=== PATIENT | female | born 1990 | race American Indian/Alaskan Native ===

== ENCOUNTER 2016-11-12 13:08 | Emergency (ER) | payer MEDICAID ==
[2016-11-12 14:09] VITALS: BP 129/78
--- NOTE | 2016-11-12 18:25 | Emergency Department Report ---
HPI - General Chief Complaint: Skin Rash Time Seen by Provider: 11/12/16 17:56 - HPI HPI: 26-year-old female presents today with lower lip swelling with lesions 1 day. Positive for history of herpes. Denies history of similar symptoms. Denies fever, chills, nausea, vomiting, chest pain, shortness of breath or abdominal pain. Denies drainage or bleeding. ED Past Medical Hx - Medications Home Medications: Home Medications Medication Instructions Recorded Confirmed Last Taken Type Acyclovir [Zovirax Tab] 400 mg PO Q8H #15 tab 11/12/16 Unknown Rx ED Review of Systems ROS: Stated complaint: RASH Other details as noted in HPI Constitutional: denies: chills, fever, malaise Eyes: denies: eye pain ENT: denies: ear pain, throat pain, congestion Respiratory: denies: cough, shortness of breath, wheezing Cardiovascular: denies: chest pain, palpitations Endocrine: no symptoms reported Gastrointestinal: denies: abdominal pain, nausea, vomiting Skin: rash Neurological: denies: headache, weakness Physical Exam - Physical Exam Vital Signs: Vital Signs 11/12/16 14:05 Temperature 98.8 F Pulse Rate 72 Respiratory 18 Rate Blood Pressure 129/78 O2 Sat by Pulse 100 Oximetry Physical Exam: GENERAL: The patient is well-developed and well-nourished. Patient is in NAD. HEAD: Normocephalic. Atraumatic. EYES: PERRL. NOSE: Normal nasal mucosa with no nasal discharge. THROAT: No erythema, swelling or exudates. LIPS: Hyperpigmented area with overlying vesicles noticed over the middle lower lip. No drainage bleeding noted. NECK: Supple, nontender, without lymphadenopathy. CHEST/LUNGS: Clear to auscultation throughout. HEART/CARDIOVASCULAR: Regular rate and rhythm. ABDOMEN: Abdomen is soft, nontender. No guarding or rebound tenderness. EXTREMITIES: Peripheral pulses intact. Capillary refill less than 2 seconds. NEURO: Alert and oriented x 3. Normal gait. ED Course Vital Signs 11/12/16 14:05 Temperature 98.8 F Pulse Rate 72 Respiratory 18 Rate Blood Pressure 129/78 O2 Sat by Pulse 100 Oximetry ED Medical Decision Making - Lab Data Vital Signs 11/12/16 14:05 Temperature 98.8 F Pulse Rate 72 Respiratory 18 Rate Blood Pressure 129/78 O2 Sat by Pulse 100 Oximetry - Medical Decision Making 26-year-old female presents to the with herpes labialis. Patient is in no acute distress at this time. She will be discharged home and is encouraged to follow up with a primary care provider. She will be sent home on acyclovir and is encouraged to return to the emergency room for any worsening symptoms. Critical care attestation.: If time is entered above; I have spent that time in minutes in the direct care of this critically ill patient, excluding procedure time. ED Disposition Clinical Impression: Herpes labialis Disposition: DISCHARGED TO HOME OR SELFCARE Is pt being admited?: No Does the pt Need Aspirin: No Condition: Stable Instructions: Oral Herpes Simplex Virus Infections (ED) Additional Instructions: Follow up with primary care provider. Return to the Emergency Department if symptoms worsen. Prescriptions: Acyclovir [Zovirax Tab] 400 mg PO Q8H #15 tab Referrals: PRIMARY CARE, [Primary Care Provider] - 3-5 Days [facility] [Outside] - 3-5 Days Forms: Work/School Release Form(ED) Time of Disposition: 18:22
== END 2016-11-12 18:31 | disposition home or self-care (01) ==
LOC: ED 13:08
DX: B00.1 Herpesviral vesicular dermatitis (principal)
CPT/HCPCS: 99282

== ENCOUNTER 2020-09-11 09:27 | Inpatient (IN) | payer MEDICAID, OTHER ==
--- NOTE | 2020-09-05 14:11 | History and Physical Report ---
History of Present Illness Date of examination: 09/05/20 Chief complaint: repeat c/s History of present illness: 30 yo at 39w1d by prior c/s x 2, GDM (diet controlled), HSV IGG pos (denies hx lesions), hx ASCUS (needs dysplasia ), GBS pos, obesity presenting for repeat c section. Past History Past Medical History: diabetes Past Surgical History: section (x2) C[employer] WORK[employer] History: abnormal PAP smear, chlamydia, herpes, trichomonas Social history: no significant social history - Obstetrical History : 3 Para: 2 Hx # Term Pregnancies: 2 Number of Living Children: 2 Medications and Allergies Allergies Allergy/AdvReac Type Severity Reaction Status Date / Time No Known Allergies Allergy Unverified 11/12/16 14:04 Home Medications Medication Instructions Recorded Confirmed Last Taken Type Acyclovir [Zovirax Tab] 400 mg PO Q8H #15 tab 11/12/16 Unknown Rx Review of Systems All systems: negative (expect HPI) - Physical Exam Abdomen: Positive: normal appearance, normal bowel sounds, other (gravid) - Obstetrical FHR: category 1 Uterine Contraction Monitor Mode: External Uterine Contraction Pattern: Absent Results All other labs normal. Assessment and Plan - Patient Problems (1) Gestational diabetes Status: Acute Plan to address problem: --diet controlled, monitor CBGs while inpatient (2) H/O: Status: Acute Plan to address problem: --To OR for repeat c/s --Consented in the chart --Questions solicited and answered --GBS pos, for repeat c/s --Desires DMPA for BCM (3) HSV (herpes simplex virus) infection Status: Acute Plan to address problem: on suppression
[~2020-09-11 09:27] MED LIST: BICITRA ORAL LIQD 30ML PO SCH; FAMOTIDINE 20 MG/2 ML INJ IV SCH; METOCLOPRAMIDE 10 MG/2 ML INJ IV SCH; OXYTOCIN DRIP 30 UNITS/500 ML BAG IV SCH; ceFAZolin/Water 2 GM/20 ML 2 GM/20 ML SYRINGE IV NR
[2020-09-11] MEDS: LACTATED RINGERS 1,000 ML IV SCH ×2 (10:42→11:52)
[2020-09-11 12:08] LABS: Basophils % (Auto) 0.1 % (0.0-1.8); Eosinophils % (Auto) 0.4 % (0.0-4.3); Hematocrit 35.7 % (30.3-42.9); Hemoglobin 11.5 gm/dl (10.1-14.3); Lymphocytes # (Auto) 2.3 K/mm3 (1.2-5.4); Lymphocytes % (Auto) 37.9 % (13.4-35.0); Mean Corpuscular HGB Conc 32 % (30-34); Mean Corpuscular Volume 79 fl (79-97); Monocytes # (Auto) 0.5 K/mm3 (0.0-0.8); Platelet Count 185 K/mm3 (140-440); Red Blood Count 4.51 M/mm3 (3.65-5.03); Red Cell Distribution Width 16.2 % (13.2-15.2)
--- NOTE | 2020-09-11 14:19 | Anesthesia Day of Surgery ---
Anesthesia Day of Surgery - Day of Surgery Patient Examined: Yes Patient H&P Reviewed: Yes Patient is NPO: Yes Beta Blockers: No Cardiac Clearance: No Pulmonary Clearance: No Rolo's Test: N/A
[2020-09-11] MEDS ORDERED: NALOXONE 0.4 MG/1 ML INJ IV PRN ×2 (14:21→16:46)
[2020-09-11] MEDS ORDERED: ONDANSETRON 4 MG/2 ML INJ IV PRN ×2 (14:21→16:46)
[2020-09-11] MEDS ORDERED: HYDROmorphone 1 MG/1 ML INJ IV PRN (14:21)
--- NOTE | 2020-09-11 14:21 | Anesthesia Consultation ---
Anesthesia Consult and Med Hx Date of service: 09/11/20 - Airway Anesthetic Teeth Evaluation: Good ROM Head & Neck: Adequate Mental/Hyoid Distance: Adequate Mallampati Class: Class III Intubation Access Assessment: Possibly Difficult - Pulmonary Exam CTA: Yes - Cardiac Exam Cardiac Exam: RRR - Pre-Operative Health Status ASA Pre-Surgery Classification: ASA3 Proposed Anesthetic Plan: Spinal - Pre-Anesthesia Comment Pre-Anesthesia Comments: csection x 2 - Pulmonary Hx Smoking: No Hx Asthma: No Hx Respiratory Symptoms: No SOB: Yes COPD: No Home Oxygen Therapy: No Hx Pneumonia: No Hx Sleep Apnea: No - Cardiovascular System Hx Hypertension: No Hx Coronary Artery Disease: No Hx Heart Attack/AMI: No Hx Angina: No Hx Percutaneous Transluminal Coronary Angioplasty (PTCA): No Hx Cardia Arrhythmia: No Hx Pacemaker: No Hx Internal Defibrillator: No Hx Valvular Heart Disease: No Hx Heart Murmur: No Hx Peripheral Vascular Disease: No - Central Nervous System Hx Neuromuscular Disorder: No Hx Seizures: No CVA: No Hx Back Pain: Yes Hx Psychiatric Problems: No - Gastrointestinal Hx Ulcer: No Hx Gastroesophageal Reflux Disease: Yes - Endocrine Hx Renal Disease: No Hx End Stage Renal Disease: No Hx Cirrhosis: No Hx Liver Disease: No Hx Insulin Dependent Diabetes: No Hx Non-Insulin Dependent Diabetes: Yes Hx Thyroid Disease: No Hx Hypothyroidism: No Hx Hyperthyroidism: No - Hematic Hx Anemia: No Hx Sickle Cell Disease: No - Other Systems Hx Alcohol Use: Yes (social) Hx Substance Use: No Hx Cancer: No Hx Obesity: Yes
[2020-09-11] MEDS ORDERED: ceFAZolin/STERILE WATER 2 GM/20 ML SYRINGE IV ONE (15:25)
[2020-09-11] MEDS ORDERED: BUPIVACAINE /DEX-WATER 0.75% (2 ML) AMPULE INFILTRATI ONE (15:32)
[2020-09-11] MEDS ORDERED: KETOROLAC 30 MG/1 ML INJ ONE (15:32)
[2020-09-11] MEDS ORDERED: ONDANSETRON 4 MG/2 ML INJ ONE (15:32)
[2020-09-11] MEDS ORDERED: BUPIVACAINE/PF (0.5%) 5 MG/1 ML 30 ML VIAL INFILTRATI ONE (15:36)
[2020-09-11] MEDS ORDERED: PHENYLEPHRINE/NS 1,000 MCG/10 ML SYRINGE (OR USE) IV ONE (15:46)
[2020-09-11] MEDS ORDERED: WATER FOR IRRIG STERILE 1,500 ML BOTTLE IR ONE (15:47)
[2020-09-11] MEDS ORDERED: SODIUM CHLORIDE 0.9% IRR 1,500 ML BOTTLE IR ONE (15:47)
[2020-09-11] MEDS ORDERED: SODIUM CHLORIDE 0.9% 100 ML ONE (16:13)
[2020-09-11] MEDS ORDERED: WITCH HAZEL/ GLYCERIN PAD TP PRN (16:46)
[2020-09-11] MEDS ORDERED: SENNOSIDES 8.6 MG TAB PO PRN (16:46)
[2020-09-11] MEDS ORDERED: PROMETHAZINE 25 MG RECT SUPP PR PRN (16:46)
[2020-09-11] MEDS ORDERED: SIMETHICONE 80 MG CHEW TAB PO PRN (16:46)
[2020-09-11] MEDS ORDERED: IBUPROFEN 800 MG TAB PO PRN (16:46)
[2020-09-11] MEDS ORDERED: MAGNESIUM HYDROXIDE (MOM) ORAL LIQD UDC PO PRN (16:46)
[2020-09-11] MEDS ORDERED: HYDROCORTISONE 25 MG RECTAL SUPP PR PRN (16:46)
[2020-09-11] MEDS ORDERED: LANOLIN/ZINC/DIMETHICONE (LANSINOH) 7 GM TP PRN (16:46)
[2020-09-11] MEDS ORDERED: MORPHINE 4 MG/1 ML INJ IV PRN (16:46)
[2020-09-11] MEDS ORDERED: ACETAMINOPHEN 325 MG TAB PO PRN (16:46)
--- NOTE | 2020-09-11 16:52 | Procedure Note ---
OB Delivery Note - Delivery Date of Delivery: 09/11/20 Surgeon: YANICK BAJWA JR Estimated blood loss: other (400cc) - Section Preop diagnosis: repeat Postop diagnosis: same section procedure: section, repeat low transverse Disposition: PACU Complications: none Narrative: Indication: 30 yo at 39w1d by prior c/s x 2, GDM (diet controlled), HSV IGG pos (denies hx lesions), hx ASCUS (needs dysplasia ), GBS pos, obesity presenting for repeat c section. Findings: Normal uterus, tubes and ovaries. Clear fluid. No nuchal cord. Dense adhesions noted. Delivery of male at 1556 3792 g length 18.5 inches Apgars 9/9 EBL 400 cc Urine output 25 cc Intraoperative IV fluids 750 cc Procedure: Patient was taken to the operating room prepped and draped in the usual sterile fashion. Pfannenstiel skin incision was made and carried down to the underlying fascia. Fascia was incised and the incision was distended bilaterally. Rectus fascia was dissected off the rectus muscle superiorly and inferiorly. Peritoneum was identified and entered. Peritoneal incision extended superiorly and inferiorly. The bladder was visualized. The bladder blade was placed. Uterine hysterotomy incision was made and extended bilaterally. The baby was delivered in the typical vertex fashion. Baby was bulb suction at delivery. The cord was cut and clamped and handed off to the team. The placenta was delivered spontaneously. The uterus was exteriorized and cleared of all clots and debris. Uterine incision was closed with a 0 Vicryl in a running locked fashion. Good hemostasis was noted with 2 [id number] sutures applied to the uterine incisional base. The urine was noted to be clear. Uterus, tubes, and ovaries were returned to the abdominal cavity. Bilateral gutters were cleared and the abdomen and pelvis were irri gated. Good hemostasis noted. Interceed and hemoblast was applied to the uterine incision. The rectus muscle was reapproximated with 2-0 Vicryl. attention was directed towards the rectus fascia which was reapproximated with 0 PDS in a running fashion. The subcutaneous tissue was irrigated and reapproximated with 2-0 Vicryl in a running fashion. Skin was closed with a 4-0 Vicryl in a subcuticular fashion. The procedure was completed and the patient tolerated the procedure well. All instruments and lap counts were correct x2. - A at 1 minute: 9 at 5 minutes: 9 Infant Gender: Male
[2020-09-11] MEDS ORDERED: OXYTOCIN DRIP 30 UNITS/500 ML BAG IV SCH (17:00)
[2020-09-11] MEDS: KETOROLAC 30 MG/1 ML INJ IV SCH (20:46)
[2020-09-12] MEDS: KETOROLAC 30 MG/1 ML INJ IV SCH ×2 (02:20→11:15)
[2020-09-12] MEDS: oxyCODONE /ACETAMINOPHEN 5-325MG TAB PO PRN ×2 (06:24→18:02)
[2020-09-12 09:15] LABS: Hematocrit 33.2 % (30.3-42.9); Hemoglobin 10.7 gm/dl (10.1-14.3)
--- NOTE | 2020-09-12 13:19 | Progress Note ---
Assessment and Plan - Patient Problems (1) Status post repeat low transverse section Current Visit: Yes Status: Acute Plan to address problem: Continue routine PP orders Anticipate d/c home in 24-48 hrs if stable (2) Anemia Current Visit: Yes Status: Acute Qualifiers: Anemia type: other cause Other causes of anemia: acute posthemorrhagic Qualified Code(s): D62 - Acute posthemorrhagic anemia Plan to address problem: Asymptomatic Increase iron rich foods into diet Subjective - Subjective Date of service: 09/12/20 Principal diagnosis: S/P repeat C/S; POD#1 Interval history: See admission H&P; OB operative summary and PP progress notes Patient reports: appetite normal, voiding normally, pain well controlled, flatus, ambulating normally : doing well, bottle feeding (and ) Objective - Vital Signs Latest vital signs: Vital Signs Temp Pulse Resp BP BP Pulse Ox 09/12/20 08:21 97.8 F 64 18 129/76 99 09/12/20 06:24 18 09/12/20 04:55 98.2 F 89 20 118/75 99 09/12/20 00:16 98.1 F 70 20 125/79 98 09/11/20 20:32 98.2 F 75 20 125/85 99 09/11/20 18:55 97.7 F 68 16 117/64 100 09/11/20 18:05 66 15 115/70 100 09/11/20 17:50 65 16 116/73 100 09/11/20 17:35 69 16 110/62 100 09/11/20 17:20 82 17 113/63 100 09/11/20 17:16 73 12 103/60 100 09/11/20 17:10 78 12 105/60 100 09/11/20 17:07 97.5 F L 81 12 99/62 100 09/11/20 13:59 76 98 09/11/20 13:54 81 97 09/11/20 13:49 85 98 09/11/20 13:44 94 H 98 09/11/20 13:39 75 98 09/11/20 13:38 77 124/79 09/11/20 13:34 82 98 09/11/20 13:29 93 H 98 09/11/20 13:24 81 98 09/11/20 13:19 76 98 Intake and Output 1209/12/20 09/12/20 23:59 07:59 15:59 Intake Total 990 100 120 Output Total 505 550 Balance 485 -450 120 Intake: IV 750 Oral 240 100 120 Output: Urine 505 550 Indwelling Catheter 150 Uretheral ([facility]) 300 350 Void 200 Other: Total, Intake Amount 240 100 120 Total, Output Amount 150 200 - Exam Breasts: Present: normal Cardiovascular: Present: Regular rate Lungs: Present: Normal air movement Abdomen: Present: soft, tenderness Uterus: Present: firm, fundal height below umbilicus (U-1) Extremities: Present: edema (Bilat ankles/feet) Deep Tendon Reflex Grade: Normal +2 Incision: Present: dressed (no shadow drainage or bleeding noted)
[2020-09-13] MEDS ORDERED: DIPHtheria,PERTUSSIS(ACELL),TETANUS VACCINE/PF 0.5 ML VIAL IM ONE (06:00)
[2020-09-13] MEDS: oxyCODONE /ACETAMINOPHEN 5-325MG TAB PO PRN ×2 (09:28→16:04)
[2020-09-13] MEDS ORDERED: FLU VACC QUAD 2020-2021 (6 months +)/PF 60 0.5 ML SYRINGE IM ONE (12:00)
--- NOTE | 2020-09-13 13:01 | Progress Note ---
Assessment and Plan A: POD #2 GDM A2 P: Follow Routine PostOp Orders Continue GDM Diet at home Patient strongly desires discharge home today D/C home today RTO One Week Subjective - Subjective Date of service: 09/13/20 Principal diagnosis: S/P repeat C/S; POD#1 Patient reports: appetite normal, voiding normally, pain well controlled, flatus, ambulating normally, other (States she took Glyburide 2.5mg PO BID dur ing ; No meds since hospitalization) : doing well, bottle feeding (and ) Objective - Vital Signs Latest vital signs: Vital Signs Temp Pulse Resp BP BP Pulse Ox 09/13/20 08:17 98.3 F 77 18 127/87 98 09/13/20 00:35 97.6 F 75 20 126/76 97 09/12/20 22:01 18 09/12/20 16:54 97.6 F 79 18 128/75 100 09/12/20 12:58 98.0 F 91 H 18 122/78 99 Intake and Output 09/12/20 09/13/20 09/13/20 22:59 06:59 14:59 Intake Total 800 480 240 Balance 800 480 240 Intake: Oral 440 480 240 Intake, Free Water 360 Other: Total, Intake Amount 200 240 240 # Voids Void 1 1 1 - Exam Breasts: Present: normal Cardiovascular: Present: Regular rate Lungs: Present: Clear to auscultation, Normal air movement Abdomen: Present: normal appearance, soft, normal bowel sounds Uterus: Present: normal, firm, fundal height below umbilicus Extremities: Present: normal Incision: Present: intact, other (well approximated; no bleeding, No exudate; but incision is slight moist) - Labs Labs: Abnormal lab results 09/13/20 Range/Units 12:45 POC Glucose 115 H (70-105) mg/dL
--- NOTE | 2020-09-13 13:03 | Discharge Summary ---
Providers - Providers Date of Admission: 09/11/20 09:27 Date of discharge: 09/13/20 Attending physician: YANICK BAJWA JR, MD Primary care physician: [facility] Hospitalization Delivery: Procedure: repeat low transverse Episiotomy: none Incision: normal, intact Other procedures: none complications: none Discharge diagnosis: IUP at term delivered baby: male Condition at discharge: Good Disposition: DC-01 TO HOME OR SELFCARE Plan - Discharge Medications Prescriptions: Ibuprofen [Motrin 800 MG tab] 800 mg PO Q6H PRN #30 tablet PRN Reason: Pain, Mild (1-3) oxyCODONE /ACETAMINOPHEN [Percocet 5/325 mg] 1 tab PO Q6H PRN #30 tablet PRN Reason: Pain, Moderate (4-6) - Provider Discharge Summary Activity: routine, no sex for 6 weeks, no heavy lifting 4 weeks, no strenuous exercise Diet: routine Instructions: routine Additional instructions: [] Smoking cessation referral if applicable(refer to patient education folder for contact #) [] Refer to [facility] Booklet Call your doctor immediately for: * Fever > 100.5 * Heavy vaginal bleeding ( >1 pad per hour) * Severe persistent headache * Shortness of breath * Reddened, hot, painful area to leg or breast * Drainage or odor from incision. * Keep incision clean and dry at all times and follow doctor's instructions regarding bathing/showering - Follow up plan Follow up: YANICK BAJWA JR, MD [Staff Physician] - 7 Days
[2020-09-13 15:43] VITALS: BP 133/61
== END 2020-09-13 16:30 | disposition home or self-care (01) | DRG 765 ==
LOC: APU 09:27 → OB 19:09
PROVIDERS: ADMIT Obstetrics & Gynecology; ATTEND Obstetrics & Gynecology
PROC: 10D00Z1 Extraction of Products of Conception, Low, Open Approach (ICD-10-PCS; principal; 2020-09-11)
PROC: 3E0234Z Introduction of Serum, Toxoid and Vaccine into Muscle, Percutaneous Approach (ICD-10-PCS; 2020-09-13)
DX: O99.824 Streptococcus B carrier state complicating childbirth (principal); D62 Acute posthemorrhagic anemia; O98.52 Other viral diseases complicating childbirth; O34.211 Maternal care for low transverse scar from previous cesarean delivery; O99.02 Anemia complicating childbirth; O99.62 Diseases of the digestive system complicating childbirth; K21.9 Gastro-esophageal reflux disease without esophagitis; O99.214 Obesity complicating childbirth; O99.314 Alcohol use complicating childbirth; E66.9 Obesity, unspecified; B00.9 Herpesviral infection, unspecified; Z20.828 Contact with and (suspected) exposure to other viral communicable diseases; O24.420 Gestational diabetes mellitus in childbirth, diet controlled; Z37.0 Single live birth; Z3A.39 39 weeks gestation of pregnancy; Z72.89 Other problems related to lifestyle
CPT/HCPCS: 36415; 82962; 85014; 85018; 85025; 86850; 86900; 86901; 90471; 90715; G0378; C1765; J0690; J1885; J2370; J2405; J2590; J2765; J3490; J7120; U0003